=== PATIENT | female | born 2000 | race Caucasian/White ===

== ENCOUNTER 2022-09-10 11:53 | Outpatient (CLI) | payer MEDICAID, SELFPAY ==
--- NOTE | 2022-09-10 12:15 | CRLHL7_ITS ---
For Patients: As a result of the Cures Act, medical imaging exams and procedure reports are released immediately into your electronic medical record. You may view this report before your referring provider. If you have questions, please contact your health care provider. INDICATION: First trimester scan, establish dates. COMPARISON: None. TECHNIQUE: Real-time johnson-scale imaging of the pelvis was performed. FINDINGS: Sonographic imaging demonstrates a single living intrauterine gestation. The embryo demonstrates a regular cardiac rate measuring 167 beats per minute. The embryo`s crown-rump length measurement of 2.3 cm corresponds to a gestational age of 9 weeks 0 days with a sonographic due date of 04/15/2023. There is a normal-appearing yolk sac. There are no gross abnormalities noted within the embryo at this early state of development. The gestational sac has a normal appearance. There is an inferior perigestational hemorrhage measuring 1.5 x 0.5 x 2.1 cm. The amount of fluid within the sac appears appropriate for gestational age. The cervix is closed. The myometrium appears normal. The ovaries are of normal size. Corpus luteal cyst right ovary. Mild pelvic free fluid. IMPRESSION: Single living intrauterine with sonographic gestational age 9 weeks 0 days and sonographic due date 04/15/2023. Inferior subchorionic hemorrhage measuring 2.1 x 0.5 x 1.5 cm. Dictated by Jose Sargent MD @ 09/10/2022 1:02:42 PM (Electronically Signed)
== END 2022-09-10 11:54 | disposition home or self-care (01) ==
LOC: US 11:54
PROVIDERS: Visit Provider Physician Assistant
DX: Z34.91 Encounter for supervision of normal pregnancy, unspecified, first trimester (principal); O20.9 Hemorrhage in early pregnancy, unspecified; Z3A.09 9 weeks gestation of pregnancy
CPT/HCPCS: 76817

== ENCOUNTER 2022-09-10 13:11 | Outpatient (CLI) | payer MEDICAID, SELFPAY ==
[2022-09-10 17:04] LABS: Hepatitis B Surface Antigen* Negative (Negative)
[2022-09-10 17:14] LABS: HIV 1/2/P24 Combo Screen* Negative (Negative)
[2022-09-10 17:21] LABS: Hepatitis C Virus Antibody* Negative (Negative)
[2022-09-10 17:59] LABS: Chlamydia DNA Amplified* NOT DETECTED (No Detected); GC DNA Amplified* NOT DETECTED (No Detected)
[2022-09-10 18:54] LABS: Iron* 27 ug/dL (37-170)
[2022-09-10 19:03] LABS: Percent Iron Saturation 5 % (20-50); Total Iron Binding Capacity 516 ug/dL (265-497)
[2022-09-10 19:30] LABS: Ferritin* 5.4 ng/mL (6.24-137.0)
[2022-09-13 01:15] LABS: Rapid Plasma Reagin (RPR) Non Reactive (Non Reactive)
[2022-09-13 04:07] LABS: Rubella Antibody IgG 21.7 IU/mL
== END 2022-09-10 13:12 | disposition home or self-care (01) ==
PROVIDERS: Visit Provider Physician Assistant
DX: Z34.91 Encounter for supervision of normal pregnancy, unspecified, first trimester (principal); D64.9 Anemia, unspecified; Z3A.08 8 weeks gestation of pregnancy
CPT/HCPCS: 82728; 83540; 83550; 86592; 86703; 86762; 86787; 86803; 86850; 86900; 86901; 87086; 87340; 87491; 87591

== ENCOUNTER 2022-12-24 22:00 | Emergency (ER) | payer MEDICAID, SELFPAY ==
[2022-12-24 22:21] VITALS: BP 126/88; PULSE 86; RESP 16; TEMP 35.9; O2SAT 96
--- NOTE | 2022-12-24 22:28 | ED_ITS ---
HPI - General Adult General Time Seen by Provider: 22:35 Date Seen: 12/24/22 Chief complaint: Shortness of Breath/Dyspnea Stated complaint: chest, cough, wheezing - 23 weeks prego Time Seen by Provider: 12/24/22 22:24 Source: patient Mode of arrival: ambulatory Limitations: no limitations History of Present Illness HPI narrative: 22-year-old 001 at approximately 23 weeks by LMP who presents today with cough and shortness of breath starting yesterday. She noticed shortness of breath when up and walking yesterday, cough today. Because of the cough she has developed some upper abdominal pain but otherwise no chest pain. No lower extremity swelling. Denies nausea, vomiting, diarrhea. No runny nose but does note a bloody nose overnight. Distant history of asthma as a child but nothing recent. Related Data Home Medications Medication Instructions Recorded Confirmed prenat.vits,florecita,[id number] 1 tab PO QDAY 10/11/22 12/03/22 Previous Rx's Medication Instructions Recorded omeprazole 20 mg capsule,delayed 20 mg PO QDAY #90 caps 09/10/22 release ferrous sulfate 325 mg (65 mg 325 mg PO QDAY #90 tabs 09/11/22 iron) tablet,delayed release Allergies Allergy/AdvReac Type Severity Reaction Status Date / Time azithromycin Allergy Severe vomiting, Verified 12/03/22 09:13 swelling of the face Penicillins Allergy Severe Anaphylaxis Verified 12/03/22 09:13 latex Allergy Unknown Verified 12/03/22 09:13 Review of Systems Status of ROS: Reports: 10 or more systems reviewed and unremarkable except as noted in History and below [facility] Medical History (Updated 10/12/22 @ 10:00 by Josee Sommers PA-C) Genital herpes ?A60.00 - Herpesviral infection of urogenital system, unspecified (ICD-10) Pilonidal cyst with abscess ?L05.01 - Pilonidal cyst with abscess (ICD-10) 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 - Nonspecific mesenteric lymphadenitis (ICD-10) Intermittent daytime urinary incontinence ?R32 - Unspecified urinary incontinence (ICD-10) Dysfunctional voiding of urine ?N39.8 - Other specified disorders of urinary system (ICD-10) Daytime incontinence ?R32 - Unspecified urinary incontinence (ICD-10) Chronic elbow pain ?M25.529 - Pain in unspecified elbow (ICD-10) ?G89.29 - Other chronic pain (ICD-10) Cholelithiasis ?K80.20 - Calculus of gallbladder without cholecystitis without obstruction (ICD-10) Asthma (02/26/11) ?J45.909 - Unspecified asthma, uncomplicated (ICD-10) Anemia ?D64.9 - Anemia, unspecified (ICD-10) Social History Smoking Status: Never smoker How often do you have a drink containing alcohol: never AUDIT-C Alcohol total score: 0 Non-prescribed substance use: denies use Little interest or pleasure in doing things: not at all Feeling down, depressed, or hopeless: not at all Exam Narrative: Exam Narrative: General: Well-developed and well-nourished, no acute distress Head: Atraumatic and normocephalic Eyes: Pupils are equal reactive, extraocular motions intact, conjunctiva clear ENT: External nose and ears are normal, posterior pharynx without erythema or exudate Neck: No midline cervical tenderness, full spontaneous range of motion the neck, trachea midline, no adenopathy Heart: Regular rate and rhythm no murmurs or thrills Lungs: Bilateral inspiratory wheezes, no crackles Abdomen: Soft, nontender, nondistended with active bowel sounds Musculoskeletal: No tenderness, deformity, or edema Neurologic: Awake, alert, and oriented x3, no gross focal neurologic deficits, cranial nerves intact as tested Psych: Mood and affect are appropriate Skin: No rashes Const: Vital Signs, click to edit/add: Vital Signs - 24 hr 12/24/22 22:21 12/24/22 22:46 Temperature 96.6 F L Pulse Rate 81 Pulse Rate [Right Pulse Oximeter] 86 Respiratory Rate 16 Blood Pressure [Le ft Upper Arm] 126/88 Pulse Oximetry 96 97 Oxygen Delivery Me thod Room Air Course Course Hospital Course: Patient seen examined, prior records reviewed. Patient presents today with cough and shortness of breath. Patient has no lower extremity swelling, no chest pain, tachycardia or hypoxia, pulmonary embolism is unlikely although cannot PERC patient due to . No crackles on exam and no lower extremity swelling to suggest cardiomyopathy. Patient with cough and shortness of breath with wheezing on exam, symptoms are most consistent with bronchitis. DuoNeb and Solu-Medrol are ordered. Reevaluation(s) Reevaluation #1: Labs independently interpreted by me are reassuring. Patient reexamined and feels better after nebulizer treatment. Labs independently interpreted by me are reassuring with no evidence for heart failure, EKG is reassuring and patient is stable for discharge. Time: 23:27 Vital Signs Vital signs: Initial Vital Signs Temperature 96.6 F L 12/24/22 22:21 Temperature Source Temporal Artery Scan 12/24/22 22:21 Pulse Rate 86 12/24/22 22:21 Pulse Rhythm Regular 12/24/22 22:21 Respiratory Rate 16 12/24/22 22:21 Blood Pressure 126/88 12/24/22 22:21 Blood Pressure Mean 100 12/24/22 22:21 Blood Pressure Position Semi-Fowlers 12/24/22 22:21 Pulse Oximetry 96 12/24/22 22:21 Oxygen Delivery Method Room Air 12/24/22 22:21 Vital Signs Temperature 96.6 F L 12/24/22 22:21 Pulse Rate 86 12/24/22 22:21 Respiratory Rate 16 12/24/22 22:21 Blood Pressure 126/88 12/24/22 22:21 Pulse Oximetry 96 12/24/22 22:21 Oxygen Delivery Method Room Air 12/24/22 22:21 Temperature 96.6 F L 12/24/22 22:21 Pulse Rate 81 12/24/22 22:46 Respiratory Rate 16 12/24/22 22:21 Blood Pressure 126/88 12/24/22 22:21 Pulse Oximetry 97 12/24/22 22:46 Oxygen Delivery Method Room Air 12/24/22 22:21 Medical Decision Making Medical Records Medical records reviewed: Yes I reviewed the patient's medical records Lab Data Lab results reviewed: Yes I reviewed the patient's lab results Labs: Lab Results 12/24/22 12/24/22 Range/Units 22:32 Unknown Sodium 137 (135-149) mmol/L Potassium 3.8 (3.6-5.1) mmol/L Chloride 107 (96-114) mmol/L Carbon Dioxide 23 (20-32) mmol/L BUN 4 L (5-24) mg/dL Creatinine 0.3 L (0.5-1.5) mg/dL Estimated GFR 156 ml/min Glucose 88 (60-115) mg/dL Calcium 9.4 (8.4-10.6) mg/dL NT-Pro-B Natriuret Pep 47 pg/mL SARS-CoV-2 (PCR) Negative SARS-CoV-2 (Negative) Influenza Type A (PCR) Negative PCR FLU A (Negative) Influenza Type B (PCR) Negative PCR FLU B (Negative) RSV (PCR) Negative PCR RSV (Negative) ECG Data Attestation: I personally reviewed and interpreted this ECG as follows: Prior ECG tracings: not available for review Interpretation: Performed at 10:42 p.m. demonstrates sinus rhythm rate 79, no acute ST elevations or depressions, normal intervals, normal axis, QTC 392 Discharge Plan Discharge Prescriptions: No Action omeprazole 20 mg capsule,delayed release(DR/EC) 20 mg PO QDAY Qty: 90 1RF prenat.vits,florecita,[id number] Tablet 1 tab PO QDAY ferrous sulfate 325 mg (65 mg iron) tablet,delayed release (DR/EC) 325 mg PO QDAY Qty: 90 2RF Follow Up/Referrals: Josee Sommers PA-C [Primary Care Provider] -
[2022-12-24 22:46] VITALS: PULSE 81; O2SAT 97
[2022-12-24] MEDS: IPRAT-ALBUT 0.5-2.5 MG/3 ML NEB 1 NEB IH (22:48)
[2022-12-24] MEDS: METHYLPREDNISOLONE SOD SUCC 62.5 MG/ML (125) 125 MG IVP (22:48)
[2022-12-24 23:00] VITALS: PULSE 85; O2SAT 97
[2022-12-24 23:00] LABS: Chloride* 107 mmol/L (96-114); Potassium* 3.8 mmol/L (3.6-5.1); Sodium* 137 mmol/L (135-149)
[2022-12-24 23:03] LABS: Blood Urea Nitrogen* 4 mg/dL (5-24); Carbon Dioxide* 23 mmol/L (20-32); Creatinine* 0.3 mg/dL (0.5-1.5); Estimated Glomerular Filt Rate 156 ml/min
[2022-12-24 23:04] LABS: Calcium* 9.4 mg/dL (8.4-10.6); Glucose* 88 mg/dL (60-115)
[2022-12-24 23:13] LABS: NT Pro B Type NatriureticPept* 47 pg/mL
[2022-12-24 23:15] VITALS: PULSE 89; O2SAT 97
[2022-12-24 23:24] LABS: PCR FLU A Negative PCR FLU A (Negative); PCR FLU B Negative PCR FLU B (Negative); PCR RSV Negative PCR RSV (Negative); SARS PCR* Negative SARS-CoV-2 (Negative)
[2022-12-24 23:30] VITALS: PULSE 85; O2SAT 97
[2022-12-24 23:45] VITALS: PULSE 85; O2SAT 97
== END 2022-12-25 00:05 | disposition home or self-care (01) ==
PROVIDERS: Emergency Provider Family Medicine; PCP Physician Assistant
DX: O26.892 Other specified pregnancy related conditions, second trimester (principal); J20.9 Acute bronchitis, unspecified; Z3A.23 23 weeks gestation of pregnancy
CPT/HCPCS: 36415; 80048; 83880; 85379; 87631; 93005; 94640; 96374; 99284; J2930

== ENCOUNTER 2023-01-28 10:04 | Outpatient (CLI) | payer MEDICAID, SELFPAY | END 2023-01-28 10:05 | disposition home or self-care (01) | LOC: NFLDREF 01-31 07:24 | PROVIDERS: PCP Physician Assistant; Referring Provider Physician Assistant; Visit Provider Advanced Practice Midwife | DX: Z34.90 Encounter for supervision of normal pregnancy, unspecified, unspecified trimester (principal) | CPT/HCPCS: 86592 ==

== ENCOUNTER 2023-03-07 14:58 | Outpatient (CLI) | payer MEDICAID, SELFPAY ==
[2023-03-07 15:26] VITALS: BP 106/58; PULSE 83; TEMP 36.7
[2023-03-07 15:52] LABS: Appearance Urine Clear (Clear); Bilirubin Urine Negative (Negative); Blood Urine Negative (Negative); Color Urine Yellow (Yellow); Glucose Urine Negative (Negative); Ketones Urine Negative (Negative); Leukocyte Esterase Urine Negative (Negative); Nitrite Urine Negative (Negative); Protein Urine Negative (Negative); Specific Gravity Urine 1.025 (1.000-1.030); Urobilinogen Urine 0.2 (0.2-1.0); pH Urine 6.5 (5.0-8.5)
--- NOTE | 2023-03-07 16:28 | PC.OBNST ---
NST Note NST Note Start: 03/07/23 15:05 Freq: ONCE Status: Active Protocol: Document 03/07/23 16:18 JUANA (Rec: 03/07/23 16:20 JUANA [id number]) NST Note 2 Para (# of births) 1 EDC 04/18/23 Gestational Age In Weeks & Days 34 Weeks & 0 Days Patient Presented with Complaint(s) of Pain If Pain, describe location Low back and pelvis Other Complaints Pt c/o pain to low pelvis and bilateral groin regions, also to bilateral low back. Pt reports pain rated 9/10 when ambulating, and 2/10 at rest. Reactive Yes Appropriate for Gestational Age Yes RN Omid Blank RN Date 03/07/23 Reactive Yes Appropriate for Gestational Age Yes JAMILA Austin RN Date 03/07/23 OB NST charge Yes Complete NST Note via Write Note Yes The provider's electronic signature indicates the NST is reactive/appropriate for gestational age. *Note to provider: If an addendum is required, open the patient's chart and click on the note under the Nurse/Allied Health tab.
== END 2023-03-07 16:17 | disposition home or self-care (01) ==
LOC: OB OUT 14:59 → OB 15:00
PROVIDERS: Visit Provider Advanced Practice Midwife
DX: Z34.93 Encounter for supervision of normal pregnancy, unspecified, third trimester (principal); Z3A.34 34 weeks gestation of pregnancy
CPT/HCPCS: 59025; 81003; 99213

== ENCOUNTER 2023-03-12 11:16 | Outpatient (CLI) | payer MEDICAID, SELFPAY | END 2023-03-12 11:17 | disposition home or self-care (01) | LOC: NFLDREF 11:16 | PROVIDERS: Visit Provider Advanced Practice Midwife | DX: O99.013 Anemia complicating pregnancy, third trimester (principal); Z3A.34 34 weeks gestation of pregnancy | CPT/HCPCS: 82728 ==

== ENCOUNTER 2023-03-25 09:00 | Outpatient (RCR) | payer MEDICAID, SELFPAY ==
--- NOTE | 2023-03-14 10:53 | URNOTE ---
Request received for authorization for?Iron Sucrose (Venofer) ([id number]). Prior authorization is not required per [facility] Medical Injectable Drug List.
[2023-03-14 13:25] VITALS: BP 116/79; PULSE 93; RESP 16; TEMP 36.2; O2SAT 97
[2023-03-14] MEDS: IRON SUCROSE COMPLEX 200 MG in 0.9 % SODIUM CHLORIDE 100 ml 100 ML 440 MG IVPB (13:59)
[2023-03-14 14:20] VITALS: BP 113/71; PULSE 87; RESP 16; TEMP 36.4; O2SAT 95
[2023-03-14 14:55] VITALS: BP 120/72; PULSE 85; RESP 16; TEMP 36.1; O2SAT 98
[2023-03-18] MEDS: IRON SUCROSE COMPLEX 200 MG in 0.9 % SODIUM CHLORIDE 100 ml 100 ML 440 MG IVPB (13:19)
[2023-03-18 13:25] VITALS: BP 116/74; PULSE 93; RESP 16; TEMP 35.9; O2SAT 98
[2023-03-18 13:40] VITALS: BP 107/66; PULSE 93; RESP 16; TEMP 36.2; O2SAT 96
[2023-03-18 14:11] VITALS: BP 102/66; PULSE 85; RESP 18; TEMP 35.8; O2SAT 99
[2023-03-20 14:42] VITALS: BP 140/78; PULSE 114; RESP 16; TEMP 36; O2SAT 93
[2023-03-20] MEDS: IRON SUCROSE COMPLEX 200 MG in 0.9 % SODIUM CHLORIDE 100 ml 100 ML 440 MG IVPB (15:09)
--- NOTE | 2023-03-20 15:19 | ONC.NURNOTE ---
Patient stated that she notice her urine turned brown post infusion for a little while after the last 2 infusions. Spoke with pharmacy and this is not a side effect of iron sucrose. Patient denied bleeding from vagina, painful urination, burning from urination, fever. Patient is drinking plenty of fluids and going a good amount of urine. Encouraged patient to mention this at her next OB appointment and if she has any of the above symptoms to call her OB provider.
[2023-03-20 15:26] VITALS: BP 111/69; PULSE 100; RESP 16; TEMP 36.5; O2SAT 99
[2023-03-20 16:03] VITALS: BP 128/76; PULSE 95; RESP 16; TEMP 36.8; O2SAT 98
[2023-03-22 14:28] VITALS: BP 112/73; PULSE 92; RESP 16; TEMP 36.2; O2SAT 98
[2023-03-22] MEDS: IRON SUCROSE COMPLEX 200 MG in 0.9 % SODIUM CHLORIDE 100 ml 100 ML 440 MG IVPB (14:54)
[2023-03-22 15:21] VITALS: BP 117/67; PULSE 86; RESP 18; TEMP 36.8; O2SAT 98
[2023-03-22 15:50] VITALS: BP 108/63; PULSE 98; RESP 18; TEMP 36.8; O2SAT 99
[2023-03-25] MEDS: IRON SUCROSE COMPLEX 200 MG in 0.9 % SODIUM CHLORIDE 100 ml 100 ML 440 MG IVPB (09:18)
[2023-03-25 09:38] VITALS: BP 129/71; PULSE 95; RESP 16; TEMP 36.1; O2SAT 95
== END 2023-09-10 23:59 | disposition home or self-care (01) ==
LOC: CCIC 09:00
PROVIDERS: Visit Provider Advanced Practice Midwife
DX: D50.9 Iron deficiency anemia, unspecified (principal)
CPT/HCPCS: 96365; 96374; 96376; J1756

== ENCOUNTER 2023-03-25 10:40 | Outpatient (CLI) | payer MEDICAID, SELFPAY | END 2023-03-25 10:41 | disposition home or self-care (01) | LOC: NFLDREF 03-27 10:17 | PROVIDERS: Visit Provider Advanced Practice Midwife | DX: Z34.93 Encounter for supervision of normal pregnancy, unspecified, third trimester (principal); Z3A.36 36 weeks gestation of pregnancy; Z86.19 Personal history of other infectious and parasitic diseases | CPT/HCPCS: 87081; 87653 ==

== ENCOUNTER 2023-04-22 12:43 | Outpatient (RCR) | payer MEDICAID, SELFPAY | END 2023-04-25 08:27 | disposition home or self-care (01) | PROVIDERS: Visit Provider Advanced Practice Midwife | DX: O26.893 Other specified pregnancy related conditions, third trimester (principal); R10.2 Pelvic and perineal pain; N39.3 Stress incontinence (female) (male); Z51.89 Encounter for other specified aftercare | CPT/HCPCS: 97161; 97535 ==

== ENCOUNTER 2023-04-23 10:00 | Inpatient (IN) | payer MEDICAID, SELFPAY ==
[2023-04-23] VITALS (23 sets, daily range): BP systolic 112–164; BP diastolic 55–75; PULSE 71–97; RESP 16; TEMP 36.4–36.7; O2SAT 98
[2023-04-23 04:09] LABS: Amnisure Rom* Negative
--- NOTE | 2023-04-23 04:36 | P.LDBA_ITS ---
Subjective History of Present Illness Date Seen: 04/23/23 Narrative: Patient is being admitted to Labor and Delivery for spontaneous labor contractions. She is a 22 year old at weeks gestation. Her full history and physical was dictated by Hallie Zabala CNM on 04/02/2023. Please see this for details. Specific Issues/Plans 1. Obesity, BMI 31.8 Hemoglobin A1c: By 5.2% 2. History of genital herpes Valtrex at 36 weeks-ordered 3. Anemia, hemoglobin 10.6 at 1st OB Iron studies and ferritin pending: iron 27L, TIBC 516H, % sat 5L, ferritin 5.4L Ferrous sulfate 325 daily --> switched to every other day 34 weeks, hgb 10. Has been taking iron, IV iron on 03/25. 4. Epigastric burning Initiated omeprazole 20 mg 09/10/2022 5. UTI treated in ER, uncertain antibiotic 6. Asthma as a child has not used meds in years Flu shot: 09/10/2022 COVID shot: Vaccinated, due for booster Tdap: 02/25/2023 OB - Problem Based A/P Additional Plan (1) Post term over 40 weeks: Status: Acute (2) Pain during labor: Status: Acute Plan Assessment:?? at 40.5 weeks gestation?? GBS negative? Patient is coping well with challenges of labor.?? Labor type: Spontaneous, Early labor? Category 1 FHR pattern.? Plan:?? * ?Admit to L & D? * IV access: Not needed at this time * Monitoring per policy: intermittent? * Candidate for analgesia of choice.? Planning do be unmedicated for pain management * Expectant management at this time * Patient encouraged to reposition and ambulate to promote physiologic labor and . * Anticipate ? Delivery/Labor/Induction Plan Plan: expectant management OB Exam Physical Exam Vital signs: Temp Pulse BP Pulse Ox 97.9 F 94 127/75 98 04/23/23 03:45 04/23/23 03:35 04/23/23 03:35 04/23/23 03:35 Narrative: Vitals Reviewed Constitutional:? Alert and oriented x3 HEENT:? Normocephalic, atraumatic Neck:? Supple Lungs:? Clear to auscultation bilaterally Heart:? Regular rate and rhythm, no murmur, rub or gallop Abdomen:? Soft, nontender, and gravid. Vertex by Mono's, confirmed with cervical exam. Extremities:? No edema or erythema Cervix: 5 cm/90%/+1 station/vertex per RN NST: 145 bpm/moderate variability/+ accelerations/- decelerations/ every 3-5 minutes contractions Detailed Labor and Delivery Exam Patient Gravid: Yes Dilation (cm): 5 Effacement (%): 90 Fetus (Single) Station: +1 Amniotic Membrane Status: intact Heart Rate Baseline: 145 Monitor Accelerations: Present Monitor Decelerations: Early Nursing Home Variability: Moderate (6-25)
[2023-04-23] MEDS: LACTATED RINGERS 1000 ML 1,000 ML 125 ML IV (11:08)
[2023-04-23] MEDS: OXYTOCIN 30 unit/500 ML in NS 30 UNIT/500 ML BAG IVPB (11:09)
--- NOTE | 2023-04-23 13:26 | PM.OBPNL ---
Subjective Time Seen by Provider: 11:45 Date Seen: 04/23/23 Narrative: Shanell is a at 40 5/7 weeks gestation that presented earlier this morning for spontaneous onset of labor. She has progressed slowly, even after AROM at 0801 this am. She has meconium stained fluid. She reports contractions were about every 5-12 minutes. RN recommended IV pitocin for augmentation, patient was agreeable and this was started at 1109. She has started to notice and increase in contractions with them becoming more regular again. Objective Exam: Objective: Constitutional: Alert and oriented x3, mild distress, coping well Vital signs stable, see nurse documentation Abdomen: gravid, contractions palpate moderate with contractions and soft between Cervix: 6-7 cm/90%/+1 station/vertex NST: 135 bpm/moderste variability/15x15 accelerations/no decelerations/contractions every 5-7 minutes Vital Signs: Last Vital Signs Temp 97.7 F 04/23/23 12:47 Pulse 94 04/23/23 13:12 BP 122/59 L 04/23/23 13:12 Pulse Ox 98 04/23/23 03:35 Contractions Monitor mode: External Contraction pattern: Irregular Contraction intensity: Moderate Pitocin Rate (mU/min): 2 Assessment Assessment: active labor Station: +1 Amniotic Membrane Status: AROM (Light meconium stained fluid) Status: Category l Heart Rate 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 at 40.5 weeks gestation?? GBS negative? Labor Augmentation Labor type: Spontaneous, Active labor? Category 1 FHR pattern.? Plan:?? Routine intrapartum cares as ordered. Monitoring per policy, continuous with Pitocin Candidate for analgesia of choice.? Planning do be unmedicated for pain management IV pitocin started for labor augmentation. Patient encouraged to reposition and ambulate to promote physiologic labor and . Anticipate ?
[2023-04-23] MEDS: miSOPROStoL 800 MCG/4 TABLET PR (15:01)
--- NOTE | 2023-04-23 15:13 | W.PM.OBVAGDE ---
OB Procedure Vag Delivery Mother Details Mother Details: Shanell is a 22 year-old, 2, now Para 2, admitted on 04/23/23 at 40 5/7 weeks gestation. : 2 Para: 2 Weeks Gestation: 40.5 Additional Details Amniotic Membrane Status: AROM Amniotic Membrane Rupture Date: 04/23/23 Amniotic Membrane Rupture Time: 08:01 Amniotic Membrane Fluid Description: Clear Analgesia/Anesthesia Type: None Waterbirth: No Pitcoin: Yes Intrapartal Events: Labor Augmentation Delivery augmentation: pitocin Labor Onset: 07:13 Complete: 14:42 Pushin:42 Heart: heart tones during second stage were reassuring with good variability between contractions but difficult to obtain during pushing. Delivery Details Delivery Date: 04/23/23 Delivery Time: 14:49 Route of delivery: Gender: Male Infant Viability: Alive; Heart Rate Present Position at Delivery: OA (LIT) Delivery Details: Patient was admitted for spontaneous onset of labor and progressed slowly in the active phase of labor but progressed quickly once labor was augmented with AROM then pitocin. IV pitocin was only ever at 2 units. AROM was performed at 0801 with light meconium fluid. Patient began feeling an intense urge to push, however anterior cervix was still present. Manual reduction of anterior cervix with pushing was done with consent at 1442. Cervix remained reduced, complete noted at time of pushing. of a viable male at 1449 in semi-fowlers in the bed. Vertex delivered LIT. No nuchal cord or shoulder. Body delivered easily and without incident. Infant passed to mothers abdomen with a weak cry, with stimulation had a few spontaneous cries. Cord was clamped and cut at <60 seconds and was taken to the warmer. Peds provider in attendance at delivery. APGARS were 8 at one minute and 9 at five minutes respectively. Mouth was bulb suctioned. A large gush of blood occurred before delivery of placenta. Intact placenta with a 3 vessel cord delivered spontaneously at 1457 with significant trailing membranes. With the ring forceps they were teased out. Another gush of bleeding occurred after delivery. Upon further assessment there was another small amount of membranes that was seperated from the placenta, again teased out using a ring forceps. Bleeding improved but rectal Cytotec and IV Pitocin were given prophylaxis. Placenta sent to pathology. Fundus firm. Small labial abrasion identified. No repair. QBL 250 cc. Mother and baby stable; mother plans to breastfeed. Infant weight: 3700g. 1 Minute Interval Total Score: 8 5 Minute Interval Total Score: 9 Additional Details Shoulder Dystocia: No Placenta Delivery Time: 14:57 Placental Delivery Description: Spontaneous (Trailing membranes) Procedure Done: Global Blood Loss: 250 Laceration: None Blood Loss Measurement Type: QBL Bakri Used: No Sponge/Need Count Correct: Yes Cord Vessel Description: 3 Vessels Event Summary Status: Mother and were stable after delivery. Disposition: floor Assessment & Plan Assessment & Plan (1) Post term over 40 weeks: (2) Pain during labor: (3) Normal vaginal delivery: Plan Detail Time Spent: Please review Coding section regarding the total time spent today in the care of this patient, separate from any independently billable service. Care includes but is not limited to a medically appropriate evaluation and?the?documentation?of?the care?in?the?health?record.
[2023-04-23] MEDS: ACETAMINOPHEN 500 MG TABLET 1000 MG PO (17:38)
[2023-04-23] MEDS: IBUPROFEN 600 MG TABLET PO (22:32)
[2023-04-24] VITALS: BP 106/75; PULSE 80; RESP 16; TEMP 36.7; O2SAT 97
[2023-04-24 03:56] VITALS: BP 111/73; PULSE 77; RESP 16; TEMP 36.8; O2SAT 98
--- NOTE | 2023-04-24 08:17 | P.DS_ITS ---
DS: Providers Provider Date Seen: 04/24/23 Date of admission: 04/23/23 10:00 Primary care physician: Not a Local Provider Admitting Clinician: Ann Vargas CNM Attending Physician on discharge: Ann Vargas CNM Date of Discharge: 04/24/23 DS: Diagnosis Discharge Diagnosis (1) Lactating mother: Status: Acute (2) care following vaginal delivery: Status: Acute Exam Narrative: Exam Narrative: GENERAL APPEARANCE:? normal affect, alert, no distress? MOOD:? appropriate? CHEST:? clear to auscultation and percussion? HEART:? regular rate and rhythm? ABDOMEN:? soft, non-tender the uterine fundus is 2 cm Below Umbilicus, Midline and is appropriate for the stage of recovery. ? PERINEUM:? mild edema of the perineum, there is an intact perineum that is healing well.? EXTREMITIES:? normal and no edema? Patient has no complaints? No active bleeding?? Doing well? She is requesting discharge home after 24 hours.? Const: Vital Signs, click to edit/add: Vital Signs - 24 hr 04/23/23 09:11 04/23/23 10:40 04/23/23 11:19 Temperature 98 F 97.8 F Pulse Rate 79 Pulse Rate [Pulse Oximeter] Respiratory Rate Blood Pressure 122/72 Blood Pressure [Le ft Arm] Pulse [facility]ximetry [facility] 12:47 04/23/23 13:12 04/23/23 13:38 Temperature 97.7 F 97.6 F Pulse Rate 94 Pulse Rate [Pulse Oximeter] Respiratory Rate Blood Pressure 122/59 L Blood Pressure [Le ft Arm] Pulse Oximetry [facility] 14:32 04/23/23 15:08 04/23/23 15:23 Temperature 98.1 F Pulse Rate 88 82 Pulse Rate [Pulse Oximeter] Respiratory Rate Blood Pressure 145/58 H 128/58 L Blood Pressure [Le ft Arm] Pulse Oximetry [facility]/23 15:39 04/23/23 15:40 04/23/23 15:55 Temperature Pulse Rate 83 80 83 Pulse Rate [Pulse Oximeter] Respiratory Rate Blood Pressure 164/65 H 124/58 L 120/58 L Blood Pressure [Le ft Arm] Pulse Oximetry Oxygen Delivery Me thod 04/23/23 15:55 04/23/23 16:08 04/23/23 16:23 Temperature 98.0 F Pulse Rate 76 86 Pulse Rate [Pulse Oximeter] Respiratory Rate Blood Pressure 117/55 L 124/59 L Blood Pressure [Le ft Arm] Pulse Oximetry Oxygen Delivery Me thod 04/23/23 16:38 04/23/23 16:53 04/23/23 19:38 Temperature 98.1 F Pulse Rate 71 89 Pulse Rate [Pulse Oximeter] 97 Respiratory Rate 16 Blood Pressure 118/60 122/55 L Blood Pressure [Le ft Arm] 112/69 Pulse Oximetry 98 Oxygen Delivery Me thod Room Air 04/24/23 00:00 04/24/23 03:56 Temperature 98.1 F 98.2 F Pulse Rate Pulse Rate [Pulse Oximeter] 80 77 Respiratory Rate 16 16 Blood Pressure Blood Pressure [Le ft Arm] 106/75 111/73 Pulse Oximetry 97 98 Oxygen Delivery Me thod Room Air Room Air OB - DS: Summary Hospital Course Hospital Course: Patient is a 22year old, G 2 now P 2? admitted on 04/23/23 at 40 Weeks, 5 Days gestation for active labor at term.? She had an uncomplicated vaginal delivery.? She delivered a viable male infant.? She is breast feeding and reports things are well.? the patient has done well.? Her pain is well controlled with current medications.? She has no new complaints.? Vitals have been stable. She has remained afebrile. She is voiding without difficulty. She is passing gas and has had a bowel movement without difficulty or concerns. She is ambulating and denies any dizziness. She is planning Nexplanon for control. Peripartum Data delivery method: Vaginal Laceration description: None Episiotomy description: None complications: none Gender: Male Infant Discharge Plan: Home Status at Discharge Functional status at discharge: independent ambulation Overall status at discharge: patient is progressing back to baseline Time Spent with Patient Time attestation: Total time spent providing and/or coordinating discharge services: Discharge Plan Discharge Disposition: Home, Self-Care Date of Admission: 04/23/23 10:00 Attending Provider on Discharge: Ann Vargas Primary Care Provider: Provider,Not a Local Condition: Stable Anticipated Discharge Date/Time: 04/24/23 17:00 Discharge Medications: New docusate sodium 100 mg Capsule 100 mg PO DAILY Qty: 30 0RF Rx Instructions: Take 1-2 tablets daily as needed for constipation. ibuprofen 600 mg Tablet 600 mg PO Q6H PRNQty: 30 0RF Continued prenat.vits,florecita,aqr-kjke-kdcti Tablet 1 tab PO QDAY albuterol sulfate 90 mcg/actuation HFA aerosol inhaler 2 puff inhalation Q4-6H PRN (Reason: shortness of breath or wheezing) Qty: 8.5 0RF Hold Instructions: patient reports not using ferrous sulfate 325 mg (65 mg iron) tablet,delayed release (DR/EC) 325 mg PO QDAY Qty: 90 2RF Discontinued valacyclovir [Valtrex] 500 mg tablet 500 mg PO BID Qty: 90 0RF Discharge Orders: Discharge Order (Routine); Ordered 04/24/23 Ordered By: Ann Vargas Patient Education: OB Vaginal/Breast Feeding Additional Instructions: Discharge instructions were reviewed with the patient including signs and symptoms of infection and home going medications.? Lifting Restrictions: 20 pounds for 6? weeks? ?? Do not drive while taking narcotic pain meds.? Off Work or School for 6 weeks.? ?? Symptoms to report to doctor:? -Bleeding that saturates more than one pad per hour? -Passing clots larger than the size of a golf ball? -Pain not relieved by prescribed medication? -Fever above 100.4 degrees Fahrenheit? -A foul vaginal odor? -Difficulty in emotions, mood and functions? -Thoughts of hurting yourself and/or ? -Painful, reddened area in your breast? -Any drainage, redness or tenderness in your IV/epidural site? -Severe headache that doesn't improve after taking medications? -Changes in vision, including temporary loss of vision, blurred vision, and/or light sensitivity? -Upper abdominal pain (usually under ribs on the right side)? -Decrease in urination or painful, frequent urinating? -Chest pain? -Shortness of breath? -Tenderness or pain with redness and/swelling in the calf(s) of your leg? ?? Follow Up in clinic in 2 and 6 weeks.? ?? consultation services are available to all mothers and babies for the first year after delivery.? To make an appointment, please call [phone].? Activity Level: Activity as Tolerated Activity Detail: Discharge Diet: Regular Follow Up Appointments: Provider,Not a Local [Primary Care Provider] - [facility] [Provider Group] Forms: MyHealth Info Instructions
[2023-04-24 08:18] VITALS: BP 101/63; PULSE 82; RESP 16
[2023-04-24 08:57] LABS: Hemoglobin* 11.1 gm/dL (12.0-16.0)
[2023-04-24 11:34] VITALS: BP 124/75; PULSE 77; RESP 16
[2023-04-24] MEDS: DOCUSATE SODIUM 100 MG CAPSULE PO (11:34)
[2023-04-24] MEDS: polyethylene glycoL 3350 17 GM PACK PO (14:41)
== END 2023-04-24 16:15 | disposition home or self-care (01) | DRG 806 ==
LOC: OB OUT 12:04 → OB 12:06 → OB OUT 12:08 → OB 12:08
PROVIDERS: Advanced Practice Midwife; Admitting Provider Advanced Practice Midwife; Visit Provider Advanced Practice Midwife
DX: O48.0 Post-term pregnancy (principal); O98.32 Other infections with a predominantly sexual mode of transmission complicating childbirth; A60.00 Herpesviral infection of urogenital system, unspecified; O77.0 Labor and delivery complicated by meconium in amniotic fluid; O99.02 Anemia complicating childbirth; D64.9 Anemia, unspecified; Z3A.40 40 weeks gestation of pregnancy; Z37.0 Single live birth
CPT/HCPCS: 36415; 84112; 85018; 86850; 86900; 86901; 88307; 88313; A9270; J7120

== ENCOUNTER 2023-08-30 10:34 | Outpatient (CLI) | payer MEDICAID, SELFPAY ==
--- OUTSIDE RECORDS SUMMARY | 2023-08-30 10:42 | XMS_ITS | Clinical Summary ---
Author Name Unknown Organization [employer] [facility] [employer] [facility] Address [place], [place] [address] Care Team Providers Care Informatics Consultant Name Role Phone Dustin Lr MD Primary Care Provider [phone] Allergies Active Allergy Reactions Criticality Noted Date Comments Azithromycin Anaphylaxis High 02/09/2013 Penicillins *Unknown 07/10/2016 Medications Medication Sig Dispensed Refills Start Date End Date Status triamcinolone (ARISTOCORT) 0.1 % ointmentIndications: Contact dermatitis, unspecified contact dermatitis type, unspecified trigger Apply topically to affected area(s) 2 times daily. 30 g 0 10/03/2020 Active albuterol HFA (PRO-AIR; VENTOLIN; PROVENTIL) 90 mcg/actuation inhalerIndications:I nhalation injury due to chemical (HC) Inhale 2 Puffs by mouth 4 times daily if needed for Shortness of Breath 1st choice. 1 Each 0 12/20/2021 Active famotidine (PEPCID) 20 mg tabletIndications:Ga stroesophageal reflux disease, unspecified whether esophagitis present Take 1 Tablet (20 mg) by mouth two times daily. 20 Tablet 0 04/22/2022 Active 25/iron fum/folic/dha (-1 ORAL) Take by mouth. 0 Act karley Active Problems Problem Noted Date Diagnosed Date Epigastric pain 08/30/2020 Hypoxia 08/30/2020 Resolved Problems Problem Noted Date Diagnosed Date Resolved Date Nexplanon in place 08/08/2020 Overview: Placed in left arm on 08/08/2020. Due for removal in 3 years, 08/08/2023. Aleksandra Markham PA-C, Family Medicine.....................08/08/2020 10:25 AM Encounters Date Type Department Care Team Description 06/04/2023 Lab Requisition [facility] [phone] Ann Vargas CNM from Last 3 Months Immunizations Name Administration Dates Next Due DTaP 04/11/2007, 4,2002,09/18,2002 HIB PRP-OMP (PedvaxHIB) 09/01/2003,2002, Hepatitis A (Peds) 06/01/2013,04/11/2007 Hepatitis B (Peds) 09/01/2003, 3,2002,05/27 Human Papilloma Virus Vaccine 12/31/2013, 014,06/01/2013 Inactivated Polio Vaccine 04/11/2007,03/2003,2002,07/14 Influenza A (H1N1), Inactivated 06/22/2009 Influenza Virus, Unspecified 05/31/2014,05/15/20 13 Influenza, IIV3 (Age 6-35 mos) 04/21/2012 Influenza, IIV3 (Age >=3 years) 05/16/20 10,06/04/2008,05/28/2006,06/22,05/25/2003 Influenza, IIV4 07/02/2019,05/26/2018,06/15/2016 Influenza, IIV4 (=>6mos) MDV 05/30/2015 MMR 04/11/2007,05/25/2003 Meningococcal B 05/29/2018 Meningococcal Vaccine (Menactra) 06/01/2013 Meningococcal Vaccine (Menveo) 05/26/2018 Pneumococcal conj 13-Valent (Prevnar 13) 09/01/2003,2002,2002,07/14 Tdap 06/01/2013 Typhoid (injectable) 05/26/2018 Varicella Vaccine 04/11/2007,05/25/2003 Social History Tobacco Use Types Packs/Day Years Used Date Smoking Tobacco: Never Smokeless Tobacco: Never Alcohol Use Standard Drinks/Week Comments Yes 3 (1 standard drink = 0.6 oz pur e alcohol) Social Connections Answer Date Recorded Frequency of Communication with Friends and Fami ly Not on file 07/29/2021 Financial Resource Strain Answer Date R ecorded Difficulty of Paying Living Expenses Not on file 07/29/2021 Difficulty of Paying Living Expenses Not on file 07/29/2021 Sex and Gender Information Value Date Recorded Sex Assigned at Not on file Gender Identity Not on file Sexual Orientation Not on file Obstetrics History Para Term AB IAB SAB Ectopic Multiple Livin g Live Births 2 1 1 1 1 Date Outcome GA Total Labor Labor/2nd/3rd Weight Sex Delivery Anes PTL Rosalinda A1 A5 Name Cl in 08/16 Term Thu ng Last Filed Vital Signs Vital Sign Reading Time Taken Comments Blood Pressure 127/74 04/01/2023 10:07 PM CDT Pulse 94 04/01/2023 10:07 PM CDT Temperature 36.8 ??C (98.2 ??F) 04/01/2023 9:52 PM CD T Respiratory Rate 16 04/01/2023 9:52 PM CDT Oxygen Saturation 98% 04/01/2023 10:07 PM CDT Inhaled Oxygen Concentration - - Weight 100 kg (220 lb 8 oz) 04/01/2023 9:55 PM C DT Height 162.6 cm (5' 4) 04/01/2023 9:55 PM CDT Body Mass Index 37.85 04/01/2023 9:55 PM CDT Plan of Treatment Health Maintenance Due Date Last Done Comments Depression screening for age 12+ 2014 Hepatitis C screening for ag e 18-79 2020 BMI (ht and wt on same day) for age 18+ 09/02/2021 09/02/2020 Chlamydia for age 16-24 09/19/2021 09/19/2020, 08/26 COVID-19 vaccine series ( season) 2023 03/29/2021, 03/01/2021 Influenza for age 9-49 03/29/2023 9, 05/26/2018, 06/15/2016, Additional history exists Tetanus booster 06/01/2023 06/01/2013 Pap test for age 21-65 06/03/2026 06/03/2023 Pneumococcal series for age 6-64 Completed 09/01/2003, 2002, 2002, Additional history exists Tdap Completed 06/01/2013 HPV series for age 9-26 Completed 01/01/20 14, 08/25/2013, 06/01/2013 Meningococcal series for age 11-21 Completed 2017, 06/01/2013 HIV for age 15-65 Completed 09/10/2022 Procedures Procedure Name Priority Date/Time Associated Diagnosis Comments LAB TRACKING EVENT Routine 06/03/2023 11 :32 AM LOCKSTITCH FR[employer] ED[employer] TAPE SEWER COIL SHAPER THIN PREP PAP SCREEN IMAGED Routine 06/03/2023 11:32 AM [employer] SEW[employer] from Last 3 Months Results * LAB TRACKING EVENT (06/03/2023 11:32 AM [employer] SEWER) Other (Other) Client Collect / Unknown 06/03/2023 11:32 AM [employer] T[employer] SEWER 06/04/2023 4:18 PM L[employer]STITCH FR[employer] ED[employer] TAPE SEWER Ann Vargas CNM LAB BILL ONLY [facility] [address] [place] [address], * COIL SHAPER THIN PREP PAP SCREEN IMAGED (06/03/2023 11:32 AM LOCKSTITCH FR[employer] ED[employer] TAPE SEWER) Case Report Gynecologic Cytology Report ? Case: [id number] ? Authorizing Provider: ??Ann Vargas CNM ? Collected: ? 06/03/2023 1132 ? Ordering Location: ? [facility] ?Received: ?06/06/2023 1422 ? First Screen: ?Muenich, Ritu M ? Specimen: ?COIL SHAPER ThinPrep Vial Screening, Cervical ? 06/13/2023 9:21 AM [facility] INTERPRETATION/ RESULT NEGATIVE FOR INTRAEPITHELIAL LESION OR MALIGNANCY (NIL) (none) 06/13/2023 9:21 AM [facility] IMEN ADEQUACY Satisfactory for evaluation Endocervical component present 06/13/2023 9:21 AM [facility] HPV REQUEST HPV not requested 2022 9:21 AM [facility] Over [facility] LABORATORY-C ENTRAL LABORATORY Date of LMP 06/13/2023 9:21 AM [facility]-C ENTRAL LABORATORY Comment: Last Pap Date 06/13/2023 9:21 AM [facility] Comment:first Last Pap Result First Pap/Unknown 9:21 AM [facility] Over 40 Females LABORATORY-C ENTRAL LABORATORY Menstrual Status 06/13/2023 9:21 AM [facility]-C ENTRAL LABORATORY [place] Bx Done Today No 06/13/2023 9:21 AM [facility] Additional Information 06/13/2023 9:21 AM [facility] ENTRAL LABORATORY Comment: Interpreted at [facility] - [facility] [place] [address] Automated Review Successful 06/13/2023 9:21 AM [facility] ENTRAL LABORATORY Comment:Specimen processed s uccessfully by automated lcac radar operator/navigator device, ThinPrep Imaging System, [employer] Note The pap test is a screening technique, not a diagnostic procedure. It is used primarily to screen for squamous cancers and precursor lesions. Published studies have shown that it is subject to both false negative and false positive results. The pap test should not be used as the sole means to diagnose or exclude pre-malignant and malignant lesions. 06/13/2023 9:21 AM [employer] [facility] Other (Cervical) 06/03/2023 11:32 AM [employer] T[employer] SEWER 06/06/2023 2:22 PM L[employer]ITCH [employer] TAPE SEWER Ann Vargas CN PATHOLOGY/CYTOLOGY [facility] [address] [place] [address], [place] from Last 3 Months Advance Directives Latest Code Status on File Code Status Date Activated Date Inactivated Comments Full Code 08/31/2020 12:05 AM 08/31/2020 4:27 PM Question Answer Comments Code Status Discussion: Discussed Care Teams Informatics Consultant Relationship Specialty Start Date End Date Dustin Lr MD [address] [place] [address] PCP - General 09/29/20
== END 2023-08-30 10:35 | disposition home or self-care (01) ==
PROVIDERS: PCP Physician Assistant; Visit Provider Physician Assistant
DX: L65.9 Nonscarring hair loss, unspecified (principal); Z13.21 Encounter for screening for nutritional disorder; Z13.228 Encounter for screening for other metabolic disorders; Z13.0 Encounter for screening for diseases of the blood and blood-forming organs and certain disorders involving the immune mechanism; Z13.29 Encounter for screening for other suspected endocrine disorder
CPT/HCPCS: 80053; 82306; 82728; 84443

== ENCOUNTER 2023-11-22 07:50 | Outpatient (CLI) | payer MEDICAID, SELFPAY ==
--- OUTSIDE RECORDS SUMMARY | 2023-12-12 12:48 | XMS_ITS | Clinical Summary ---
Author Name Unknown Organization [employer] [facility] Address [place], [place] [address] Care Team Providers Care Insurance Follow Up Specialist Name Role Phone Dustin Lr MD Primary Care Provider [phone] Allergies Active Allergy Reactions Criticality Noted Date Comments Azithromycin Anaphylaxis High 02/09/2013 Penicillins *Unknown 07/10/2016 Medications Medication Sig Dispensed Refills Start Date End Date Status triamcinolone (ARISTOCORT) 0.1 % ointmentIndications: Contact dermatitis, unspecified contact dermatitis type, unspecified trigger Apply topically to affected area(s) 2 times daily. 30 g 10/03/2020 Active albuterol HFA (PRO-AIR; VENTOLIN; PROVENTIL) 90 mcg/actuation inhalerIndications:I nhalation injury due to chemical (HC) Inhale 2 Puffs by mouth 4 times daily if needed for Shortness of Breath 1st choice. 1 Each 12/20/2021 Active famotidine (PEPCID) 20 mg tabletIndications:Ga stroesophageal reflux disease, unspecified whether esophagitis present Take 1 Tablet (20 mg) by mouth two times daily. 20 Tablet 04/22/2022 Active 25/iron fum/folic/dha (-1 ORAL) Take by mouth. Act karley Active Problems Problem Noted Date Diagnosed Date Epigastric pain 08/30/2020 Hypoxia 08/30/2020 Resolved Problems Problem Noted Date Diagnosed Date Resolved Date Nexplanon in place 08/08/2020 Overview: Placed in left arm on 08/08/2020. Due for removal in 3 years, 08/08/2023. Aleksandra Markham PA-C, Family Medicine.....................08/08/2020 10:25 AM Immunizations Name Administration Dates Next Due DTaP [...] vaccine series ( season) 2023 03/29/2021, 03/01/2021 Tetanus booster 06/01/2023 06/01/2013 Influenza for age 9-49 03/29/2024 9, 05/26/2018, 06/15/2016, Additional history exists Pap test for age 21-65 06/03/2026 06/03/2023 Pneumococcal series for age 6-64 Completed 09/01/2003, 2002, 2002, Additional history exists Tdap Completed 06/01/2013 HPV series for age 9-26 Completed 01/01/20 14, 08/25/2013, 06/01/2013 Meningococcal series for age 11-21 Completed 2017, 06/01/2013 HIV for age 15-65 Completed 09/10/2022 Procedures Procedure Name Priority Date/Time Associated Diagnosis Comments PLASTIC DOLLS MOLD FILLER THIN PREP PAP SCREEN IMAGED Routine 06/03/2023 11:32 AM EXPLOSIVE TECHNICIAN HIV EXTERNAL Routine 09/10/2022 GC CHLAMYDIA TRACH PROBE Routine 09/19/2020 10:54 AM EXPLOSIVE TECHNICIAN from Last 3 Months or Most Recently Relevant to Health Maintenance Results * PLASTIC DOLLS MOLD FILLER THIN PREP PAP SCREEN IMAGED (06/03/2023 11:32 AM EXPLOSIVE TECHNICIAN) Case Report Gynecologic Cytology Report ? Case: [id number] ? Authorizing Provider: ??Ann Vargas CNM ? Collected: ? 06/03/2023 1132 ? Ordering Location: ? [facility] ?Received: ?06/06/2023 1422 ? First Screen: ?Ritu Patterson ? Specimen: ?PLASTIC DOLLS MOLD FILLER ThinPrep Vial Screening, Cervical ? 06/13/2023 9:21 AM [facility]PLOSIVE TECHNICIAN [facility] INTERPRETATION/ RESULT NEGATIVE FOR INTRAEPITHELIAL LESION OR MALIGNANCY (NIL) (none) 06/13/2023 9:21 AM [facility] [employer] [facility] ENTRAL LABORATORY IMEN ADEQUACY Satisfactory for evaluation Endocervical component present 06/13/2023 9:21 AM [facility] [employer] [facility] ENTRAL LABORATORY HPV REQUEST HPV not requested 2022 9:21 AM EXPLOSIVE TECHNICIAN [facility] Date of LMP 06/13/2023 9:21 AM EXPLOSIVE TECHNICIAN [facility] [employer] [facility] ENTRAL LABORATORY Comment: Last Pap Date 06/13/2023 9:21 AM [facility] [employer] [facility] ENTRAL LABORATORY Comment:first Last Pap Result First Pap/Unknown 9:21 AM [facility] [employer] [facility] ENTRAL LABORATORY Menstrual Status 06/13/2023 9:21 AM [facility] [employer] [facility] ENTRAL LABORATORY [place] Bx Done Today No 06/13/2023 9:21 AM [facility] [employer] [facility] ENTRAL LABORATORY Additional Information 06/13/2023 9:21 AM [facility] [employer] [facility] ENTRAL LABORATORY Comment: Interpreted at [facility] [address] [place] [id number] Automated Review Successful 06/13/2023 9:21 AM [facility] [employer] [facility] ENTRAL LABORATORY Comment:Specimen processed s uccessfully by automated research associate device, ThinPrep Imaging System, [employer] Note The pap test is a screening technique, not a diagnostic procedure. It is used primarily to screen for squamous cancers and precursor lesions. Published studies have shown that it is subject to both false negative and false positive results. The pap test should not be used as the sole means to diagnose or exclude pre-malignant and malignant lesions. 06/13/2023 9:21 AM [facility] Other (Cervical) 06/03/2023 11:32 AM EXPLOSIVE TECHNICIAN 06/06/2023 2:22 PM EXPLOSIVE TECHNICIAN Ann Vargas CNM PATHOLOGY/CYTOLOGY [facility] [address] [place] [address], * HIV EXTERNAL (09/10/2022) EXTERNAL HIV Negative [facility] Blood BLOOD SPECIMEN / Unknown Josee Christiano [employer] [facility] [address] [place] [address] * GC CHLAMYDIA TRACH PROBE (09/19/2020 10:54 AM EXPLOSIVE TECHNICIAN) CHLAMYDIA PROBE Negative 10:25 PM EXPLOSIVE TECHNICIAN [facility] TRAL LABORATORY N GONORRHOEAE PROBE Negative 09/19/2020 10:25 PM EXPLOSIVE TECHNICIAN [facility] TRAL LABORATORY Other VAGINAL SWAB / Unknown Client Collect / Unknown 09/19/2020 10:54 AM EXPLOSIVE TECHNICIAN 09/19/2020 5:17 PM EXPLOSIVE TECHNICIAN October Christiano [employer] [facility] Performing Organization Address City/[facility]/ZIP Co de Phone Number [facility] [address] [place] [address], from Last 3 Months or Most Recently Relevant to Health Maintenance Advance Directives * Full Code (Latest Code Status on File) Date Activated Date Inactivated Comments 08/31/2020 12:05 AM 08/31/2020 4:27 PM Question Answer Comments Code Status Discussion: Discussed Care Teams Insurance Follow Up Specialist Relationship Specialty Start Date End Date Dustin Lr MD [address] [place] [address] PCP - General 09/29/20
== END 2023-11-22 07:51 | disposition home or self-care (01) ==
LOC: NFLDREF 12-12 12:46
PROVIDERS: Visit Provider Physician Assistant
DX: E55.9 Vitamin D deficiency, unspecified (principal)
CPT/HCPCS: 82306

== ENCOUNTER 2024-10-05 17:02 | Outpatient (CLI) | payer MEDICAID, SELFPAY | END 2024-10-05 17:03 | disposition home or self-care (01) | PROVIDERS: Visit Provider Registered Nurse | DX: E04.1 Nontoxic single thyroid nodule (principal); Z13.228 Encounter for screening for other metabolic disorders; Z13.220 Encounter for screening for lipoid disorders | CPT/HCPCS: 80053; 80061; 84443 ==

== ENCOUNTER 2024-10-12 13:25 | Outpatient (CLI) | payer MEDICAID, SELFPAY ==
--- NOTE | 2024-10-12 13:45 | CRLHL7_ITS ---
For Patients: As a result of the Century Cures Act, medical imaging exams and procedure reports are released immediately into your electronic medical record. You may view this report before your referring provider. If you have questions, please contact your health care provider. INDICATION: Nontoxic thyroid nodule COMPARISON: CT cervical spine 09/22/2024 TECHNIQUE: Penaloza scale and color Doppler images were acquired of the thyroid gland. FINDINGS: Densely calcified nodule right thyroid lobe measures 9 x 8 x 9 millimeters, TR 4. No additional nodules. Thyroid echotexture is heterogeneous. Isthmus measures 2.8 millimeters. The right lobe measures 5.4 x 1.9 x 1.9 cm and the left lobe measures 4.0 x 1.2 x 2.0 cm in size. The color Doppler images demonstrate normal vascularity. There is no evidence of cervical lymphadenopathy or parathyroid mass. IMPRESSION: 9 millimeter densely calcified nodule right thyroid lobe which does not require additional follow-up. Dictated by Jose Sargent MD @ 10/12/2024 9:28:29 PM (Electronically Signed)
== END 2024-10-12 13:26 | disposition home or self-care (01) ==
LOC: US 13:26
PROVIDERS: Visit Provider Registered Nurse
DX: E04.1 Nontoxic single thyroid nodule (principal)
CPT/HCPCS: 76536